=== PATIENT | male | born 2000 | race Caucasian/White ===

== ENCOUNTER 2022-12-13 17:51 | Emergency (ER) | payer BC, SELFPAY ==
[2022-12-13 17:52] VITALS: BP 112/83; PULSE 85; RESP 16; TEMP 36.6; O2SAT 99
--- NOTE | 2022-12-13 19:13 | EX.ED.GENINJ ---
HPI History of Present Illness Chief Complaint: Bite Narrative Narrative: Patient is a 22-year-old male with no significant medical history presents to the emergency department concerning for a bat bite to his left orellana. Patient states he felt something last night and noticed he had an abrasion, this morning when he looked at the abrasion, there was another one next to it he is concerned he got bit by a bat. Patient denies seeing a bat in his room, he denies seeing a bat recently however he is concerned because people at the [facility] have seen bats in the room. Patient states he is severely scared of rabies and is wondering if he could have the rabies vaccine. PFSH PFSH Medical History no medical history Allergy/AdvReac Type Severity Reaction Status Date / Time No Known Allergies Allergy Verified 12/13/22 17:52 Surgical History no surgical history Social History Smoking Status: Never smoker ROS ROS ED ROS Narrative Constitutional: Negative for fever, chills, weight loss, weakness Eyes: Negative for vision loss, vision change, double vision ENT: Negative for any sore throat, ear pain, congestion Cardiovascular: Negative for any chest pain, tightness, palpitations Respiratory: Negative for any cough, sputum production, hemoptysis, dyspnea, dyspnea on exertion, orthopnea Gastrointestinal: Negative for any abdominal pain, nausea, vomiting, diarrhea, constipation, blood in stool, blood in vomit : Negative for any urinary frequency, dysuria, retention, blood in urine Muscle skeletal: Negative for any muscle joint pain, stiffness, myalgias, arthralgias, neck pain, back pain Neurological: Negative for any headache, syncope, numbness or tingling, dizziness Skin: Negative for any rashes, lumps, itching. Positive for abrasion to the left orellana Psychiatric: Negative for any depression, anxiety, stress, suicidal ideation, homicidal ideation Hematologic: Negative for any easy bruising, excessive bruising, easy bleeding Allergies: Negative for any eczema, hives, rash EXAM Physical Exam Narrative Exam Narrative: Vital signs reviewed. \ Extremities: No peripheral edema, no signs of gross trauma or deformity. Active full range of motion of all extremities. Patient has 2 very small superficial abrasions 0.25 cm. There is no surrounding cellulitis. There is no significant injury. Neuro: Cranial nerves II through XII intact, no focal neurological deficits. Skin: Clean dry and intact with no rash, purpura, petechiae, vesicles or pustules. Backs/flank: No CVA tenderness, no midline spinal tenderness, no deformity. Psych: Normal mood and affect. No SI, HI or acute psychosis. Const Vital Signs: 12/13/22 17:52 Temperature 97.8 F Temperature Source Temporal Pulse Rate 85 Respiratory Rate 16 Blood Pressure 112/83 H Blood Pressure Mean 92 Pulse Ox 99 Oxygen Delivery Method Room Air Positive well nourished and well developed General Appearance ED: well developed MDM MDM Treatment and Re-Evaluation Narrative: Patient appears generally well, patient appears nontoxic, vital signs are stable. Patient presents to the emergency department with an abrasion to the left orellana. Patient is concern for bat bite. Patient would like the rabies vaccine and the immunoglobulin concerning for rabies. Patient will receive the rabies immunoglobulin as well as the vaccine. I was able to put some of the immunoglobulin into the left orellana approximately 2.5 cc. Patient then received the rest of the immunoglobin as well as the vaccine. Patient will come back per protocol. He verbally understands importance of follow-up. All questions were answered. Patient stable for discharge. Discharge Plan Triage Chief Complaint: Bite ED Midlevel Provider: Tom Pascal ED Provider: Tom Olmstead Dx/Rx/DC Orders Clinical Impression: Abrasion hip/leg Instructions: Understanding Rabies Primary Care Provider: Care Physician,No Primary Referrals: Care Physician,No Primary [Primary Care Provider] - Activity Restrictions/Additional Instructions: Please follow the instructions to return to get your vaccinations. Disposition Disposition: Home, Self Care
[2022-12-13] MEDS: Rabies Immune Globulin/PF 300 UNIT/ML, 5 ML VIAL 1120 UNIT IM (19:42)
[2022-12-13] MEDS: Rabies Vaccine,Human Diploid 2.5 UNITS Vial IM (19:44)
[2022-12-13 19:59] VITALS: BMI 18.8
== END 2022-12-13 20:20 | disposition home or self-care (01) ==
PROVIDERS: Emergency Provider Emergency Medicine; Visit Provider Emergency Medicine
DX: S80.812A Abrasion, left lower leg, initial encounter (principal); W55.81XA Bitten by other mammals, initial encounter; Z23 Encounter for immunization
CPT/HCPCS: 90675; 96372; 99283; 90375

== ENCOUNTER → 2022-12-16 | Outpatient (CLI) | payer BC, SELFPAY ==
[2022-12-16 13:32] VITALS: BP 109/80; PULSE 147; RESP 16; O2SAT 99; BMI 18.7
--- NOTE | 2022-12-16 13:33 | ED.RN ---
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
[2022-12-16] MEDS: Rabies Vaccine,Human Diploid 2.5 UNITS Vial IM (14:10)
[2022-12-16 14:26] VITALS: PULSE 101
== END | disposition home or self-care (01) ==
LOC: ED 04-08 10:16
DX: Z23 Encounter for immunization (principal)
CPT/HCPCS: 90675; 96372

== ENCOUNTER 2022-12-21 16:38 | Outpatient (CLI) | payer BC, SELFPAY ==
[2022-12-21 17:04] VITALS: BP 123/91; PULSE 101; RESP 16; O2SAT 98
[2022-12-21] MEDS: Rabies Vaccine,Human Diploid 2.5 UNITS Vial IM (17:07)
== END 2022-12-21 17:17 | disposition home or self-care (01) ==
DX: Z23 Encounter for immunization (principal)
CPT/HCPCS: 90675; 96372

== ENCOUNTER → 2022-12-28 | Outpatient (CLI) | payer BC, SELFPAY ==
[2022-12-28] MEDS: Rabies Vaccine,Human Diploid 2.5 UNITS Vial IM (18:38)
== END | disposition home or self-care (01) ==
DX: Z23 Encounter for immunization (principal)
CPT/HCPCS: 90675; 96372